=== PATIENT | female | born 1960 | race Caucasian/White ===

== ENCOUNTER 2019-01-05 06:51 | Inpatient (IN) | payer OTHER | END 2019-01-07 19:05 | LOC: DAHIP 06:51 → 4AH 12:16 | PROC: 0SRC0J9 Replacement of Right Knee Joint with Synthetic Substitute, Cemented, Open Approach (ICD-10-PCS; principal; 2019-01-05 08:25) | DX: M17.11 Unilateral primary osteoarthritis, right knee (principal); E66.01 Morbid (severe) obesity due to excess calories ==

== ENCOUNTER 2019-04-06 06:41 | Inpatient (IN) | payer OTHER | END 2019-04-08 17:56 | LOC: DAHIP 06:41 → 4AH 12:47 | PROC: 0SRD0J9 Replacement of Left Knee Joint with Synthetic Substitute, Cemented, Open Approach (ICD-10-PCS; principal; 2019-04-06 08:30) | DX: M17.12 Unilateral primary osteoarthritis, left knee (principal); E66.01 Morbid (severe) obesity due to excess calories ==